=== PATIENT | female | born 1950 | race Caucasian/White ===

== ENCOUNTER → 2025-07-03 10:30 | Outpatient (BNVA) | payer MEDICARE, SELFPAY | PROVIDERS: Visit Provider Dermatology | DX: L30.9 Dermatitis, unspecified (principal); L81.0 Postinflammatory hyperpigmentation; L82.1 Other seborrheic keratosis; I78.8 Other diseases of capillaries; D18.01 Hemangioma of skin and subcutaneous tissue; L84 Corns and callosities | CPT/HCPCS: 11104; 99204 ==

== ENCOUNTER 2025-07-15 15:42 | Outpatient (CLI) | payer MEDICARE, SELFPAY | END 2025-07-15 15:43 | disposition home or self-care (01) | LOC: LAB 15:44 | PROVIDERS: PCP Nurse Practitioner Family; Visit Provider Dermatology | DX: L30.9 Dermatitis, unspecified (principal) | CPT/HCPCS: 36415; 86160; 86162; 86235; 86255; 86376 ==